=== PATIENT | female | born 1980 | race Caucasian/White ===

== ENCOUNTER 2016-12-11 14:33 | Observation (INO) | payer BC ==
--- NOTE | 2016-12-11 15:31 | DR.GENAD ---
HPI - PCP Primary Care Physician: DR. MORE - Complaint/Symptoms Chief Complaint Doctors Comments: Patient states she feel like her body is quivering and shaking all over for the past 24 hours getting worst the past 2-3 hours. States she has been feeling weak and sleeping most of the day when she usually have insomnia. States her heart rate was 125 and 130 at home at lunch time today. She is a patient of Dr. More and she is taking a lot of medicines for arthritis, headaches, migraines, allergies and nerves. 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 States she has had problems with her nerves since her father's on . States she stopped work two years ago because of panic attacks. States she takes xanax 0.25mg as needed for nerves. Chief Complaint:: PT STATES " MY WHOLE BODY FEELS LIKE ITS SHAKING AND IT WONT QUIT, MY HR IS 120-150....BR Self Treatment fo Chief Complaint: PT STATES " I WOKE UP LIKE THIS". - Nurses notes reviewed Nurses Notes Review: Yes - Source History Provided: Patient - Mode of Arrival Mode of Arrival: Ambulatory - Timing Onset of Chief Complaint: 12/10/16 Came on: Suddenly - Duration Duration: Constant How lon Duration: Hours - Location Location: shaking all over - Severity Severity: Mild - Modifying Factors Worsens:: nothing Improves:: nothing PMH - PMH Past Medical History: Yes Past Medical History: Arthritis, GERD, Hypertension, Kidney Stones Past Surgical History: Yes Surgical History: Cholecystectomy, Ortho Surgery, Other Past Surgical History Comment: BREAST REDUCTION... - Family History History of Family Medical Conditions: Yes Family Medical History: Diabetes Mellitus, Cancer, [place], Coronary Artery Disease, Hypertension - Social History Does patient currently use any type of tobacco product: No Have you used tobacco products in the last 12 months: No Type of Tobacco Use: None Does any household member use tobacco: No Alcohol Use: None Do you use any recreational Drugs:: No Lives With: Family Lives Where: Home - infectious screening In the last 2 months have you had wt loss of >10#?: NO Have you had fever, night sweats or hemotysis?: No Have you traveled outside the country in the last 6 months?: No ROS - Review of Systems Constitutional: No Symptoms Reported. negative: See HPI, Chills, Diaphoresis, Fever, Malaise, Weakness, Irritable, Fatigue, Loss of Appetite, Other Eyes: No Symptoms Reported ENTM: No Symptoms Reported. negative: See HPI, Ear Pain, Ear Discharge, Pulling on Ears, Hearing Loss, Nose Pain, Nose Discharge, Epistaxis, Nose Congestion, Mouth Pain, Mouth Swelling, Loose Teeth, Drooling, Throat Pain, Throat Swelling, Ear Foreign Body Respiratoy: No Symptoms Reported. negative: See HPI, Productive Cough, Non- Productive Cough, Moist Cough, Dry Cough, Hacking Cough, Barking Cough, Brassy Cough, Orthopnea, Short of Breath, Stridor, Wheezing, Hemoptysis, Other Cardiovascular: No Symptoms Reported, Palpitations. negative: See HPI, Chest Pain, Edema, Syncope, Cyanosis, Skin Mottling, Other Gastrointestinal/Abdominal: No Symptoms Reported. negative: See HPI, Abdominal Pain, Constipation, Diarrhea, Nausea, Vomiting, Food Intolerance, Other Genitourinary: No Symptoms Reported. negative: See HPI, Discharge, Dysuria, Frequency, Hematuria, Pain, Bleeding, Other Neurological: No Symptoms Reported, Anxiety, Emotional Problems Musculoskeletal: No Symptoms Reported Integumentary: No Symptoms Reported Hematologic/Lymphatic: No Symptoms Reported Endocrine: No Symptoms Reported Psychiatric: No Symptoms Reported PE - Vital Signs Vitals: Pulse Rate 110 Respiratory Rate 20 Blood Pressure [Right Arm] 92/70 Blood Pressure [Left Arm] 143/82 Blood Pressure 183/106 O2 Sat by Pulse Oximetry 97 - General Limitations: No Limitations General Appearance: Alert, In No Apparent Distress, Obese - Head Head Exam: Normal Inspection, Atraumatic, Normocephalic - Eyes Eye exam: Normal Appearance, PERRL, EOMI. negative: Scleral Icterus, Conjunctival Injection, Nystagmus, Miosis, Mydrasis, Periorbital Swelling, Periorbital Tenderness, Other - ENT ENT Exam: Normal Exam, Normal Oropharynx, Normal External Ear Exam, Mucous Membranes Moist, TM's Normal Bilaterally External Ear Exam: Normal External Inspection TM/Canal Exam: Bilateral Normal Nose Exam: Normal Nose Exam Mouth Exam: Normal Inspection Throat Exam: Normal Inspection - Neck Neck Exam: Normal Inspection, Full ROM, Trachea Midline. negative: Tenderness, Meningismus, Lymphadenopathy, Thyromegaly, Other - Chest Chest Inspection: Normal Inspection, Symmetric Chest Wall Rise - Respiratory Respiratory Exam: Normal Lung Sounds Bilat Respiratory Exam: Bilateral Clear to Auscultation - Cardiovascular Cardiovascular Exam: Regular Rate, Normal Rhythm, Tachycardia, Normal Heart Sounds - Abdominal Exam Abdominal Exam: Normal Inspection, Normal Bowel Sounds, Soft Abdominal Tenderness: negative: RUQ, RLQ, LUQ, LLQ, Epigastrium, Suprapubic, Diffuse, Mild, Moderate, Severe, Other - Extremities Extremities Exam: Normal Inspection, Full ROM, Normal Capillary Refill. negative: Tenderness, Edema, Joint Swelling, Calf Tenderness, Other - Back Back Exam: Normal Inspection, Full ROM - Neurologic Neurological Exam: Alert, Oriented X3, CN II-XII Intact, Normal Gait, Reflexes Normal - Psychiatric Psychiatric Exam: Normal Affect - Skin Skin Exam: Warm, Dry, Intact, Normal Color Course - Reevaluation 1st: Improved - Consultation Called: 16:47 Call Returned: 16:47 (Dr. More to admit) - Education/Counseling Education/Counseling: Patient, Family Educated On: Treatment, Diagnosis, Prognosis, Needs for Follow Up ROR - Labs Reviewed Laboratory Results Reviewed?: Yes (all labs and x-ray results reviewed and discussed with patient and mother) Result Diagrams: 12/11/16 15:35 12/11/16 15:30 Laboratory: WBC 9.2 X10^3/uL (3.6-10.0) 12/11/16 15:35 RBC 5.15 X10^6/uL (3.5-5.4) 12/11/16 15:35 Hgb 14.0 g/dL (12.0-16.0) 12/11/16 15:35 Hct 42.8 % (36.0-47.0) 12/11/16 15:35 MCV 83.2 fL (80.0-100.0) 12/11/16 15:35 MCH 27.2 pg (27.0-34.0) 12/11/16 15:35 MCHC 32.7 g/dL (33.0-35.0) L 12/11/16 15:35 RDW 13.9 % (11.6-16.5) 12/11/16 15:35 Plt Count 298 X10^3/uL (150.0-450.0) 12/11/16 15:35 MPV 8.2 fL (7.4-11.0) 12/11/16 15:35 Neut % 65.8 % (42.0-75.0) 12/11/16 15:35 Lymph % 25.7 % (21.0-51.0) 12/11/16 15:35 [place] % 7.1 % (0.0-13.0) 12/11/16 15:35 Eos % 0.9 % (0.9-2.9) 12/11/16 15:35 Baso % 0.5 % (0.2-1.0) 12/11/16 15:35 Neut # 6.0 x10^3/uL (2.2-4.8) H 12/11/16 15:35 Lymph # 2.4 X10^3/uL (1.3-2.9) 12/11/16 15:35 [place] # 0.7 x10^3/uL (0.3-0.8) 12/11/16 15:35 Eos # 0.1 x10^3/uL (0.0-0.2) 12/11/16 15:35 Baso # 0.0 X10^3/uL (0.0-0.1) 12/11/16 15:35 Absolute Nucleated RBC 0.1 /100WBC 12/11/16 15:35 INR Target Range - 12/11/16 15:30 INR 0.97 (0.8-1.3) 12/11/16 15:30 PTT 32.4 SECONDS (22.9-36.5) 12/11/16 15:30 PTT Comment - 12/11/16 15:30 Sodium 143 mmol/L (136-145) 12/11/16 15:30 Corrected Sodium 143 mmol/L (136-145) 12/11/16 15:30 Potassium 3.7 mmol/L (3.5-5.1) 12/11/16 15:30 Chloride 106 mmol/L (98-107) 12/11/16 15:30 Carbon Dioxide 28.0 mmol/L (21-32) 12/11/16 15:30 BUN 14 mg/dL (7-18) 12/11/16 15:30 Creatinine 0.91 mg/dL (0.55-1.02) 12/11/16 15:30 Est GFR (MDRD) Af Amer > 60 (>60) 12/11/16 15:30 Est GFR (MDRD) Non-Af > 60 (>60) 12/11/16 15:30 Glucose 117 mg/dL (65-99) H 12/11/16 15:30 Calcium 8.9 mg/dL (8.5-10.1) 12/11/16 15:30 Corrected Calcium 9.5 mg/dL (8.5-10.1) 12/11/16 15:30 Magnesium 1.9 mg/dL (1.7-2.9) 12/11/16 15:30 Total Bilirubin 0.50 mg/dL (0.2-1.0) 12/11/16 15:30 AST 17 Units/L (15-37) 12/11/16 15:30 ALT 39 Units/L (12-78) 12/11/16 15:30 Alkaline Phosphatase 108 Units/L (46-116) 12/11/16 15:30 Creatine Kinase 47 Units/L (26-192) 12/11/16 15:30 CK-MB (CK-2) < 1.0 ng/mL (0-4.0) 12/11/16 15:30 CK/CKMB % Calc 2.1 % (<4) 12/11/16 15:30 Troponin I < 0.02 ng/mL (0-1.5) 12/11/16 15:30 Total Protein 7.4 g/dL (6.4-8.2) 12/11/16 15:30 Albumin 3.2 g/dL (3.4-5.0) L 12/11/16 15:30 Globulin 4.2 g/dL (2.5-4.5) 12/11/16 15:30 Albumin/Globulin Ratio 0.8 Ratio (1.1-2.1) L 12/11/16 15:30 Free T4 0.96 ng/dL (0.76-1.46) 12/11/16 15:30 TSH 3rd Generation 1.546 uIU/mL (0.358-3.74) 12/11/16 15:30 - XRAY XRAY Interpreted by: Radiologist (CXR: Heart normal; lungs clear) - EKG Rate: 96 [place]: Normal Rhythm: NSR Block: None Hypertrophy: None ST: Normal, Infarct - Diagnosis Discharge Problem: Tachycardia, Anxiety, Cardiac arrhythmia, Essential hypertension, Hyperglycemia - Discharge Plan Disposition: ADMITTED INPATIENT Condition: Stable - Follow ups/Referrals Follow ups/Referrals: Osmany More [Primary Care Provider] - 3 days - Instructions
[2016-12-11 15:49] LABS: BASOPHILS % (AUTO) 0.5 % (0.2-1.0); EOSINOPHILS # (AUTO) 0.1 x10^3/uL (0.0-0.2); EOSINOPHILS % (AUTO) 0.9 % (0.9-2.9); HEMATOCRIT 42.8 % (36.0-47.0); LYMPHOCYTES # (AUTO) 2.4 X10^3/uL (1.3-2.9); LYMPHOCYTES % (AUTO) 25.7 % (21.0-51.0); MEAN CORPUSCULAR HEMOGLOBIN 27.2 pg (27.0-34.0); MEAN CORPUSCULAR HGB CONC 32.7 g/dL (33.0-35.0); MEAN CORPUSCULAR VOLUME 83.2 fL (80.0-100.0); MEAN PLATELET VOLUME 8.2 fL (7.4-11.0); MONOCYTES # (AUTO) 0.7 x10^3/uL (0.3-0.8); MONOCYTES % (AUTO) 7.1 % (0.0-13.0); NEUTROPHILS % (AUTO) 65.8 % (42.0-75.0); PLATELET COUNT 298 X10^3/uL (150.0-450.0); RED BLOOD COUNT 5.15 X10^6/uL (3.5-5.4); RED CELL DISTRIBUTION WIDTH 13.9 % (11.6-16.5); WHITE BLOOD COUNT 9.2 X10^3/uL (3.6-10.0)
--- NOTE | 2016-12-11 16:08 | RAD ---
HISTORY: Tachycardia Study: AP chest obtained 3:55 p.m. Comparison: Findings: Poor inspiratory effort with the dome of the right diaphragm at the level the right posterior 7th ri b . The trachea is midline . There is no widening or shift of mediastinum. The cardiac silhouette ap pears within normal limits. The costophrenic angles are sharp and both diaphragms are adequately qian ntained. The lungs are adequately aerated. Osseous structures are within normal limits for the patie nt's age There is no evidence of active inflammatory disease. IMPRESSION: 1. Heart normal size lungs clear Reported By:
[2016-12-11 16:09] LABS: BLOOD UREA NITROGEN 14 mg/dL (7-18); CALCIUM 8.9 mg/dL (8.5-10.1); CHLORIDE 106 mmol/L (98-107); COR NA(FOR HYPERGLY) 143 mmol/L (136-145); CREATININE 0.91 mg/dL (0.55-1.02); GLUCOSE 117 mg/dL (65-99); SODIUM 143 mmol/L (136-145); TROPONIN I < 0.02 ng/mL (0-1.5); eGFR BLACK RACES > 60 (>60); eGFR NON BLACK RACES > 60 (>60)
[2016-12-11 16:14] LABS: ALANINE AMINOTRANSFERASE 39 Units/L (12-78); ALBUMIN 3.2 g/dL (3.4-5.0); ALKALINE PHOSPHATASE 108 Units/L (46-116); ASPARTATE AMINO TRANSFERASE 17 Units/L (15-37); CKMB % 2.1 % (<4); COR CA(FOR HYPOALB) 9.5 mg/dL (8.5-10.1); CREATINE KINASE 47 Units/L (26-192); CREATINE KINASE MB < 1.0 ng/mL (0-4.0); FREE T4 (FREE THYROXINE) 0.96 ng/dL (0.76-1.46); MAGNESIUM 1.9 mg/dL (1.7-2.9); TOTAL PROTEIN 7.4 g/dL (6.4-8.2)
[2016-12-11] MEDS ORDERED: TORADOL 30 MG VIAL IVP STA (16:59)
[2016-12-11] MEDS ORDERED: ATIVAN TAB 1 MG PO PRN (17:04)
[2016-12-11] MEDS ORDERED: PROTONIX INJ 40 MG VIAL ONE (17:18)
[2016-12-11] MEDS ORDERED: TORADOL 30 MG VIAL ONE (17:18)
[2016-12-11] MEDS ORDERED: PROTONIX INJ 40 MG VIAL IVP SCH (18:00)
[2016-12-11] MEDS: NS 1/2 + KCL 20 MEQ/L 1,000 ML IV SCH (19:00)
[2016-12-11 21:51] LABS: CKMB % 2.8 % (<4); CREATINE KINASE 36 Units/L (26-192); CREATINE KINASE MB < 1.0 ng/mL (0-4.0); TROPONIN I < 0.02 ng/mL (0-1.5)
[2016-12-12 03:46] LABS: CKMB % 3.1 % (<4); CREATINE KINASE 32 Units/L (26-192); CREATINE KINASE MB < 1.0 ng/mL (0-4.0); TROPONIN I < 0.02 ng/mL (0-1.5)
[2016-12-12 06:01] LABS: CHOL/HDL RATIO 4.2 (0.0-5.0)
[2016-12-12] MEDS: NS 1/2 + KCL 20 MEQ/L 1,000 ML IV SCH (06:16)
[2016-12-12 08:23] VITALS: BP 97/53
[2016-12-12] MEDS ORDERED: LOVENOX INJ 40 MG SYR SC SCH (09:00)
[2016-12-12] MEDS ORDERED: FIORICET TAB PO PRN (11:52)
[2016-12-12 19:14] VITALS: BMI 45.9
== END 2016-12-12 12:15 | disposition home or self-care (01) | DRG 313 ==
LOC: ER 14:54 → MED/SURG 17:01
PROVIDERS: ADMIT Internal Medicine; ATTEND Internal Medicine
DX: R07.89 Other chest pain (principal); R06.02 Shortness of breath; I10 Essential (primary) hypertension; R00.0 Tachycardia, unspecified; M13.89 Other specified arthritis, multiple sites; R51 Headache; K21.9 Gastro-esophageal reflux disease without esophagitis; F41.0 Panic disorder [episodic paroxysmal anxiety]; K31.84 Gastroparesis; R79.89 Other specified abnormal findings of blood chemistry
CPT/HCPCS: 36415; 71010; 80053; 80061; 82550; 82553; 83735; 84439; 84443; 84484; 85025; 85610; 85730; 93005; 94760; 96365; 96374; 96375; 99284; A4216; A4222; C9113; J7030; G0378; J1885

== ENCOUNTER 2017-01-03 05:23 | Emergency (ER) | payer BC ==
[2017-01-03] MEDS ORDERED: DEMEROL INJ IVP ONE (05:40)
[2017-01-03] MEDS ORDERED: ZOFRAN INJ 4 MG VIAL IVP ONE (05:40)
[2017-01-03] MEDS ORDERED: ADACEL TDaP IM ONE ×2 (05:42→05:47)
--- NOTE | 2017-01-03 05:44 | DR.LACERAT ---
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 PMH - PMH Past Medical History: Arthritis, GERD, Hypertension, Kidney Stones Past Medical History Comment: autoimmune disease Past Surgical History: Yes Surgical History: Cholecystectomy, Ortho Surgery, Other - Family History Family Medical History: Hypertension - Social History Do you use any recreational Drugs:: No ROS - Review of Systems Constitutional: No Symptoms Reported Respiratoy: No Symptoms Reported Cardiovascular: No Symptoms Reported Gastrointestinal/Abdominal: No Symptoms Reported Integumentary: See HPI PE - Vital Signs Vitals: Temperature 98.2 F Pulse Rate 97 Respiratory Rate 18 Blood Pressure [] 97/53 Blood Pressure [] 143/82 Blood Pressure 140/92 O2 Sat by Pulse Oximetry 96 - General Limitations: No Limitations General Appearance: Alert - Neck Neck Exam: Normal Inspection - Chest Chest Inspection: Normal Inspection - Respiratory Respiratory Exam: Normal Lung Sounds Bilat Respiratory Exam: Bilateral Clear to Auscultation - Cardiovascular Cardiovascular Exam: Regular Rate - Neurologic Neurological Exam: Alert - Skin Skin Exam: Other (jagged, vshaped 3-4 cm lac to lateral left forearm; bleeding controlled) Procedures - Laceration/Wound Repair Left Lateral Forearm Wound Length (cm): 4 Wound's Depth, Shape: Linear (v shaped), Irregular Wound Explored: no foreign body removed Betadine Prep?: Yes Anesthesia: 1% Lidocaine w/ Epi Wound Debrided: minimal Wound Repaired With: sutures Suture Size/Type: 5:0, Prolene Number of Sutures: 3 Layer Closure?: No - Diagnosis Discharge Problem: Dog bite of forearm Qualifiers: Encounter type: initial encounter Laterality: left Qualified Code(s): S51.852A - Open bite of left forearm, initial encounter - Discharge Plan Disposition: 01 HOME, SELF-CARE Condition: Stable Prescriptions: Clindamycin HCl 300 mg PO Q8H #21 cap Doxycycline (Monohydrate) [Doxycycline Monohydrate] 100 mg PO BID #14 cap Hydrocodone-Acet 5 mg/325 mg [NORCO 5 MG/325 MG *] 1 tab PO Q6H PRN #12 tab PRN Reason: Pain - Follow ups/Referrals Follow ups/Referrals: Osmany Zamora [Primary Care Provider] - 3 days - Instructions Instructions: Animal Bite, Laceration Care, Adult, [id number] Additional Instructions: remove stitches in 3 days
[2017-01-03] MEDS ORDERED: DEMEROL INJ IM ONE (05:46)
[2017-01-03] MEDS ORDERED: ZOFRAN INJ 4 MG VIAL IM ONE (05:46)
[2017-01-03] MEDS ORDERED: ZOFRAN INJ 4 MG VIAL ONE (05:47)
[2017-01-03] MEDS ORDERED: DEMEROL INJ ONE (05:47)
[2017-01-03 05:48] VITALS: BP 140/92; BMI 45.7
[2017-01-03] MEDS ORDERED: XYLOCAINE 1% and EPINEPHRINE 1:100,000 IM ONE (05:57)
[2017-01-03] MEDS ORDERED: BETADINE SOLN TOP ONE (05:57)
[2017-01-03] MEDS ORDERED: XYLOCAINE 1% and EPINEPHRINE 1:100,000 ONE (05:59)
== END 2017-01-03 06:33 | disposition home or self-care (01) ==
LOC: ER 05:23
PROC: 0XQ90ZZ Repair Left Upper Arm, Open Approach (ICD-10-PCS; principal; 2017-01-03)
DX: S51.852A Open bite of left forearm, initial encounter (principal); W54.0XXA Bitten by dog, initial encounter; Y92.9 Unspecified place or not applicable
CPT/HCPCS: 12002; 90471; 96372; 99282; J2001; J2175; J2405

== ENCOUNTER → 2017-02-10 | Outpatient (CLI) | payer BC ==
--- NOTE | 2017-02-10 16:22 | MG ---
Examination: Bilateral diagnostic mammogram and right breast ultrasound. Clinical history: Personal history of bilateral breast reduction. Right breast lump. Technique: Multiple digital images of both breasts were obtained. Targeted right breast ultrasound w as also obtained evaluating the area of palpable concern in the inferior medial aspect of the right breast. Comparison: None available. Baseline mammogram. Findings: The breasts are composed of scattered fibroglandular densities. Scattered oil cysts are present in t he breasts bilaterally, probably related to the prior bilateral breast reduction. A 1.6 cm lobular oil cyst is seen in the inferior medial aspect of the right breast, associated with a scar marker from the prior breast reduction surgery. The oil cyst is seen in the vicinity of the palpable area of concern. No additional mammographic abnormality is evident in the area of palpable concern. No suspicious mass, area of architectural distortion or suspicious cluster of microcalcifications is noted in the left breast. Targeted right breast ultrasound evaluating the area of palpable concern in the inferior medial aspe ct of the right breast reveals a circumscribed lobular hypoechoic area with cystic and solid compone nts measuring 1.1 x 0.7 cm in size seen at the surgical site from the prior breast reduction, at the 4 o'clock position, and correlating with the area of palpable concern and findings on the mammogram . Findings probably represent a complicated oil cyst. A followup right diagnostic mammogram and righ t breast ultrasound is recommended in 6 months to ensure stability of the findings. Impression: 1. Probably benign postsurgical changes at the 4 o'clock position in the right breast, as described above. BI-RADS category 3/III (THREE) - PROBABLY BENIGN FINDING; SHORT INTERVAL FOLLOW-UP SUGGESTED. Recommend a followup right diagnostic mammogram and right breast ultrasound in [address] ability of the findings in the right breast. Diagnostic CAD was utilized and reviewed. * 0 (ZERO) - ASSESSMENT INCOMPLETE; ADDITIONAL IMAGING IS NEEDED. * 0C - ASSESSMENT INCOMPLETE, NEEDS ADDITIONAL IMAGING EVALUATION AND/OR PRIOR MAMMOGRAMS FOR COMPAR ANGEL. * 1/1 (ONE) - NEGATIVE. * 2/II (TWO) - BENIGN FINDINGS. * 3/III (THREE) - PROBABLY BENIGN FINDING; SHORT INTERVAL FOLLOW-UP SUGGESTED. * 4/IV (FOUR) - SUSPICIOUS ABNORMALITY; BIOPSY SHOULD BE CONSIDERED. * 5/V - HIGHLY SUSPICIOUS OF MALIGNANCY; BIOPSY SHOULD BE PERFORMED. * 6/IV - KNOWN BIOPSY PROVEN MALIGNANCY-APPROPRIATE ACTION SHOULD BE TAKEN. A NEGATIVE X-RAY REPORT SHOULD NOT DELAY BIOPSY IF A DOMINANT OR CLINICALLY SUSPICIOUS MASS IS PRESENT; 4 TO 8 PERCENT OF CANCERS ARE NOT IDENTIFIED BY X-RAY. A NEGATIVE REPORT MAY REINFORCE THE CLINICAL IMPRESSION. ADENOSIS AND DENSE BREASTS MAY OBSCURE AN UNDERLYING NEOPLASM. Reported By:
== END ==
LOC: RAD 14:11
PROVIDERS: ATTEND Specialist
DX: N64.4 Mastodynia (principal); N63 Unspecified lump in breast
CPT/HCPCS: 76642; 77066

== ENCOUNTER 2017-04-13 15:15 | Inpatient (IN) | payer BC ==
--- NOTE | 2017-04-13 15:51 | DR.GENAD ---
HPI - PCP Primary Care Physician: DERIK - HPI Comment HPI Comment: HISTORY BELOW. - Complaint/Symptoms Chief Complaint Doctors Comments: NEAR SYNCOPAL EPISODE AT HOME. DIARRHEA TIMES 5 DAYS. NOW WEAK AND DIZZY. SEE PECKS AND FEEL SHE MAY PASS OUT. SEVERAL WATERY DIARRHEA STOOL TODAY. Chief Complaint:: WHILE SITTING ON TOILET PRIOR TO ARRIVAL. PT HAS EPISODE OF THINGS FAIDING AWAY AND FELT LIKE WAS GONNA PASS AWAY Self Treatment fo Chief Complaint: TAKING HOME MEDS - Nurses notes reviewed Nurses Notes Review: Yes - Source History Provided: Patient - Mode of Arrival Mode of Arrival: Ambulatory - Timing Onset of Chief Complaint: 04/13/17 Came on: Suddenly - Duration Duration: Constant Duration: Days - Severity Severity: Moderate PMH - PMH Past Medical History: Yes Past Medical History: Arthritis, GERD, Hypertension, Kidney Stones Past Surgical History: Yes Surgical History: Cholecystectomy, Ortho Surgery, Other Past Surgical History Comment: BREAST REDUCTION, BICEP - Family History History of Family Medical Conditions: Yes Family Medical History: Diabetes Mellitus, Cancer, [place], Coronary Artery Disease, Hypertension Family Medical History Comment: ANEURYSM - Social History Does patient currently use any type of tobacco product: No Have you used tobacco products in the last 12 months: No Type of Tobacco Use: None Alcohol Use: None Do you use any recreational Drugs:: No Lives With: Family Lives Where: Home - infectious screening In the last 2 months have you had wt loss of >10#?: NO Have you had fever, night sweats or hemotysis?: No Have you traveled outside the country in the last 6 months?: No Isolation: Standard ROS - Review of Systems Constitutional: Weakness, Fatigue, Loss of Appetite. negative: Chills, Diaphoresis, Fever Eyes: Blurred Vision, Photophobia. negative: Eye Pain, Discharge ENTM: negative: Ear Pain, Nose Discharge, Nose Congestion, Throat Pain Respiratoy: Short of Breath. negative: Productive Cough, Non-Productive Cough, Wheezing, Hemoptysis Cardiovascular: Chest Pain. negative: Edema, Palpitations Gastrointestinal/Abdominal: Abdominal Pain, Diarrhea. negative: Constipation, Nausea, Vomiting Genitourinary: Other (DECREASE URINE OUTPUT.). negative: Dysuria, Frequency, Hematuria Neurological: Headache, Weakness, Dizziness Musculoskeletal: Muscle Pain Integumentary: Dryness Hematologic/Lymphatic: No Symptoms Reported Endocrine: No Symptoms Reported All Other Systems: Reviewed and Negative PE - Vital Signs Vitals: Temperature 97.7 F Pulse Rate [Left Radial] 71 Pulse Rate 92 Respiratory Rate 20 Blood Pressure [Right Arm] 81/46 Blood Pressure [Left Arm] 88/51 Blood Pressure 58/46 O2 Sat by Pulse Oximetry 99 - General Limitations: No Limitations General Appearance: Alert - Head Head Exam: Normal Inspection - Eyes Eye exam: Normal Appearance - ENT ENT Exam: Normal External Ear Exam External Ear Exam: Normal External Inspection TM/Canal Exam: Bilateral Normal Nose Exam: Normal Nose Exam Mouth Exam: Normal Inspection Throat Exam: Normal Inspection - Neck Neck Exam: Trachea Midline. negative: Tenderness, Meningismus, Lymphadenopathy - Chest Chest Inspection: Symmetric Chest Wall Rise - Respiratory Respiratory Exam: Normal Lung Sounds Bilat Respiratory Exam: Bilateral Clear to Auscultation - Cardiovascular Cardiovascular Exam: Regular Rate, Normal Rhythm, Normal Heart Sounds - Abdominal Exam Abdominal Exam: Normal Bowel Sounds, Soft, Tenderness Abdominal Tenderness: Diffuse, Moderate - Back Back Exam: Normal Inspection - Neurologic Neurological Exam: Alert, Oriented X3, CN II-XII Intact, Reflexes Normal. negative: Motor Sensory Deficit - Psychiatric Psychiatric Exam: Anxious - Skin Skin Exam: Dry MDM - Additional Information Additional Information Obtained From: Family - Differential Diagnosis Differential Diagnosis: HYPOTENSION, ABDOMINAL PAIN, DIARRHEA, BOWEL OBSTRUCTION Course - Treatment Treatment: IV BOLUS IN ED. REMAIN HYPOTENSIVE.DOPAMIN DRIP STARTED AND PATIENT ADMITTED TO ICU. - Consultation Consultation Comments: DISCUSS PATIENT WITH DR. MORE. HE WILL ADMIT PATIENT. - Education/Counseling Education/Counseling: Patient, Family, Education Educated On: Treatment, Diagnosis ROR - Labs Reviewed Laboratory Results Reviewed?: Yes Result Diagrams: 04/14/17 04:30 04/14/17 04:30 Laboratory: WBC 17.6 X10^3/uL (3.6-10.0) H 04/14/17 04:30 RBC 4.76 X10^6/uL (3.5-5.4) 04/14/17 04:30 Hgb 12.4 g/dL (12.0-16.0) 04/14/17 04:30 Hct 38.9 % (36.0-47.0) 04/14/17 04:30 MCV 81.7 fL (80.0-100.0) 04/14/17 04:30 MCH 26.1 pg (27.0-34.0) L 04/14/17 04:30 MCHC 32.0 g/dL (33.0-35.0) L 04/14/17 04:30 RDW 15.1 % (11.6-16.5) 04/14/17 04:30 Plt Count 303 X10^3/uL (150.0-450.0) 04/14/17 04:30 Plt Count Comment Adequate (ADEQUATE) 04/13/17 16:08 MPV 9.2 fL (7.4-11.0) 04/14/17 04:30 Neut % 73.2 % (42.0-75.0) 04/14/17 04:30 Lymph % 16.1 % (21.0-51.0) L 04/14/17 04:30 [place] % 9.1 % (0.0-13.0) 04/14/17 04:30 Eos % 1.4 % (0.9-2.9) 04/14/17 04:30 Baso % 0.2 % (0.2-1.0) 04/14/17 04:30 Neut # 12.9 x10^3/uL (2.2-4.8) H 04/14/17 04:30 Lymph # 2.8 X10^3/uL (1.3-2.9) 04/14/17 04:30 [place] # 1.6 x10^3/uL (0.3-0.8) H 04/14/17 04:30 Eos # 0.2 x10^3/uL (0.0-0.2) 04/14/17 04:30 Baso # 0.0 X10^3/uL (0.0-0.1) 04/14/17 04:30 Absolute Nucleated RBC 0.0 /100WBC 04/14/17 04:30 Plt Morphology Comment Normal (NORMAL) 04/13/17 16:08 RBC Morphology Abnormal (NORMAL) A 04/13/17 16:08 Hypochromasia Slight A 04/13/17 16:08 Sodium 143 mmol/L (136-145) 04/14/17 04:30 Corrected Sodium 144 mmol/L (136-145) 04/14/17 04:30 Potassium 3.4 mmol/L (3.5-5.1) L 04/14/17 04:30 Chloride 110 mmol/L (98-107) H 04/14/17 04:30 Carbon Dioxide 18.3 mmol/L (21-32) L 04/14/17 04:30 BUN 31 mg/dL (7-18) H 04/14/17 04:30 Creatinine 2.55 mg/dL (0.55-1.02) H 04/14/17 04:30 Est GFR (MDRD) Af Amer 27 (>60) L 04/14/17 04:30 Est GFR (MDRD) Non-Af 22 (>60) L 04/14/17 04:30 Glucose 137 mg/dL (65-99) H 04/14/17 04:30 Calcium 7.1 mg/dL (8.5-10.1) L 04/14/17 04:30 Corrected Calcium 7.9 mg/dL (8.5-10.1) L 04/14/17 04:30 Magnesium 1.7 mg/dL (1.7-2.9) 04/14/17 04:30 Total Bilirubin 0.40 mg/dL (0.2-1.0) 04/14/17 04:30 AST 42 Units/L (15-37) H 04/14/17 04:30 ALT 92 Units/L (12-78) H 04/14/17 04:30 Alkaline Phosphatase 134 Units/L (46-116) H 04/14/17 04:30 Total Protein 6.9 g/dL (6.4-8.2) 04/14/17 04:30 Albumin 3.0 g/dL (3.4-5.0) L 04/14/17 04:30 Globulin 3.9 g/dL (2.5-4.5) 04/14/17 04:30 Albumin/Globulin Ratio 0.8 Ratio (1.1-2.1) L 04/14/17 04:30 Specimen Type Catherized urine 04/13/17 20:15 Urine Color Yellow (YELLOW) 04/13/17 20:15 Urine Appearance Cloudy (CLEAR) 04/13/17 20:15 Urine pH 5.0 (5.0 - 8.0) 04/13/17 20:15 Ur Specific [place] 1.025 (1.000-1.030) 04/13/17 20:15 Urine Protein 3+ (NEGATIVE) 04/13/17 20:15 Urine Glucose (UA) Negative (NEGATIVE) 04/13/17 20:15 Urine Ketones 1+ (NEGATIVE) 04/13/17 20:15 Urine Occult Blood 3+ (NEGATIVE) 04/13/17 20:15 Urine Nitrite Negative (NEGATIVE) 04/13/17 20:15 Urine Bilirubin 1+ (NEGATIVE) 04/13/17 20:15 Urine Urobilinogen Normal (NORMAL) 04/13/17 20:15 Ur Leukocyte Esterase 1+ (NEGATIVE) 04/13/17 20:15 Urine RBC 2-6 /HPF (NEGATIVE) 04/13/17 20:15 Urine WBC 10-15 /HPF (NEGATIVE) 04/13/17 20:15 Ur Squamous Epith Cells Few /HPF (NEGATIVE) 04/13/17 20:15 Amorphous Sediment 1+ /HPF (NEGATIVE) 04/13/17 20:15 Urine Bacteria 1+ /HPF (NEGATIVE) 04/13/17 20:15 Urine Mucus Moderate /HPF (NEGATIVE) 04/13/17 20:15 Ur Culture Indicated? Yes/culture set up 04/13/17 20:15 - XRAY XRAY Interpreted by: Radiologist XRAY Findings: REPORT DISCUSS WITH PATIENT AND FAMILY. - Diagnosis Discharge Problem: Dehydration Hypotension Qualifiers: Hypotension type: other hypotension type Qualified Code(s): I95.89 - Other hypotension Diarrhea Qualifiers: Diarrhea type: unspecified type Qualified Code(s): R19.7 - Diarrhea, unspecified Syncopal episodes Qualifiers: Syncope type: unspecified Qualified Code(s): R55 - Syncope and collapse - Discharge Plan Disposition: ADMITTED INPATIENT Condition: Stable - Follow ups/Referrals - Instructions
[2017-04-13] MEDS ORDERED: NS 1000 ML 1,000 ML ONE ×4 (16:01→20:18)
[2017-04-13] MEDS ORDERED: NS 1000 ML 1,000 ML IV ONE ×3 (16:01→19:05)
[2017-04-13 16:16] LABS: BASOPHILS # (AUTO) 0.1 X10^3/uL (0.0-0.1); BASOPHILS % (AUTO) 0.6 % (0.2-1.0); EOSINOPHILS # (AUTO) 0.1 x10^3/uL (0.0-0.2); HEMATOCRIT 44.1 % (36.0-47.0); HEMOGLOBIN 14.2 g/dL (12.0-16.0); LYMPHOCYTES % (AUTO) 21.3 % (21.0-51.0); MEAN CORPUSCULAR HEMOGLOBIN 25.9 pg (27.0-34.0); MEAN CORPUSCULAR HGB CONC 32.2 g/dL (33.0-35.0); MEAN CORPUSCULAR VOLUME 80.5 fL (80.0-100.0); MEAN PLATELET VOLUME 8.6 fL (7.4-11.0); MONOCYTES # (AUTO) 0.9 x10^3/uL (0.3-0.8); MONOCYTES % (AUTO) 6.5 % (0.0-13.0); NEUTROPHILS # (AUTO) 9.9 x10^3/uL (2.2-4.8); NEUTROPHILS % (AUTO) 70.6 % (42.0-75.0); PLATELET COUNT 415 X10^3/uL (150.0-450.0); RED BLOOD COUNT 5.47 X10^6/uL (3.5-5.4); RED CELL DISTRIBUTION WIDTH 15.2 % (11.6-16.5)
[2017-04-13 16:28] LABS: ALANINE AMINOTRANSFERASE 118 Units/L (12-78); ALBUMIN 3.7 g/dL (3.4-5.0); ALKALINE PHOSPHATASE 150 Units/L (46-116); ASPARTATE AMINO TRANSFERASE 57 Units/L (15-37); BLOOD UREA NITROGEN 39 mg/dL (7-18); CALCIUM 8.6 mg/dL (8.5-10.1); CARBON DIOXIDE 26.8 mmol/L (21-32); CHLORIDE 103 mmol/L (98-107); CREATININE 4.25 mg/dL (0.55-1.02); GLUCOSE 87 mg/dL (65-99); SODIUM 142 mmol/L (136-145); TOTAL PROTEIN 8.1 g/dL (6.4-8.2); eGFR BLACK RACES 15 (>60); eGFR NON BLACK RACES 12 (>60)
[2017-04-13 16:43] LABS: HYPOCHROMASIA SLIGHT; PLATELET MORPHOLOGY COMMENT NORMAL (NORMAL)
--- NOTE | 2017-04-13 17:12 | CT ---
HISTORY: Dizziness, passing out. Study: CT brain without contrast Comparison: None. Technique: Multiple axial images of the brain were obtained from the skull base to the vertex without administr ation of IV contrast. Dose reduction techniques including Automated Exposure Control (AEC) and adju stment of mA and kV were utilized. Findings: No acute intraparenchymal hemorrhage or mass can be identified. No extra-axial fluid collections ar e seen. No alteration in the attenuation of the brain parenchyma can be identified to suggest acute or subacute ischemic change. The ventricular system is symmetric and nondilated. The extracranial structures are grossly unremarkable. IMPRESSION: 1. No acute intracranial process can be identified. Reported By:
--- NOTE | 2017-04-13 17:20 | RAD ---
HISTORY: Diarrhea, abdominal pain Study: Acute abdominal series Comparison: Chest radiograph December 11, 2016, CT abdomen pelvis without contrast October 28, 2016 Findings: The heart size is normal for AP technique. The lungs are hypoexpanded but clear. No focal infiltrate or effusion is identified. There is a nonspecific bowel gas pattern with relative paucity of bowel gas. No convincing pneumatos is or free intraperitoneal air is identified. No abnormally dilated, gas filled loops of small bowel are seen. No pathologic calcifications are identified. The bony structures are grossly intact. IMPRESSION: 1. No acute cardiopulmonary disease. 2. Nonspecific bowel gas pattern without convincing evidence of bowel obstruction. Reported By:
--- NOTE | 2017-04-13 18:46 | CT ---
CT abdomen and pelvis without contrast Indication: Abdominal pain Comparison: 10/28/2016 Technique: Multiple axial images of the abdomen and pelvis were obtained from the lung bases to the pubic symph ysis without the administration of IV contrast. Coronal and sagittal images were also provided. Radiation dose reduction techniques were performed utilizing adjustment for MA/kVP based on patient body size. Findings: The visualized portions of the lung bases are unremarkable. The bony structures are grossly intact. Given the limitations of lack of IV contrast administration the liver, spleen, pancreas, and adrenal glands are unremarkable in their CT appearance. Previous cholecystectomy is noted. Both kidneys demonstrate punctate nonobstructing stones. No ureteral stone or hydroureteronephrosis. Mild fluid distension of the small bowel is nonspecific however can be seen the setting of a mild en teritis. No evidence of obstruction. The colon and rectum are unremarkable. The urinary bladder is grossly unremarkable. No pelvic or adnexal mass. The appendix is normal. No mesenteric lymphadenopathy or stranding can be observed. No free fluid or free air is seen withi n the abdomen. IMPRESSION: 1. Mild fluid distension of the small bowel is nonspecific; however can be seen in the setting of a mild enteritis. No CT evidence of obstruction. 2. Bilateral punctate nonobstructing nephrolithiasis. .
[2017-04-13] MEDS: NS 1000 ML 1,000 ML IV SCH ×2 (20:20→22:01)
[2017-04-13 20:34] LABS: BILIRUBIN,URINE 1+ (NEGATIVE); BLOOD/HEMOGLOBIN,URINE 3+ (NEGATIVE); GLUCOSE, URINE NEGATIVE (NEGATIVE); KETONES,URINE 1+ (NEGATIVE); LEUKOCYTE ESTERASE ,URINE 1+ (NEGATIVE); NITRITES,URINE NEGATIVE (NEGATIVE); PROTEIN,URINE 3+ (NEGATIVE); UROBILINOGEN,URINE NORMAL (NORMAL)
[2017-04-13 20:44] LABS: AMORPHOUS SEDIMENT,UR 1+ /HPF (NEGATIVE); APPEARANCE,URINE CLOUDY (CLEAR); BACTERIA,URINE 1+ /HPF (NEGATIVE); COLOR,URINE YELLOW (YELLOW); MUCUS,URINE MODERATE /HPF (NEGATIVE); SQUAMOUS EPITHELIAL CELL,UR FEW /HPF (NEGATIVE)
[2017-04-13] MEDS: DOPAMINE IV PREMIX 400 MG 400 MG/250 ML BAG IV PRN (20:51)
[2017-04-13] MEDS: CIPRO IV 400 MG PREMIX* 400 MG/200 ML IV.SOLN. IV SCH (22:00)
[2017-04-13 23:03] VITALS: BMI 46.2
[2017-04-14] MEDS ORDERED: NS 1000 ML 1,000 ML IV ONE ×2 (00:08→01:09)
[2017-04-14] MEDS: DOPAMINE IV PREMIX 400 MG 400 MG/250 ML BAG IV PRN ×3 (01:29→13:34)
[2017-04-14] MEDS: NS 1000 ML 1,000 ML IV SCH ×6 (03:15→21:09)
[2017-04-14 06:23] LABS: BASOPHILS % (AUTO) 0.2 % (0.2-1.0); EOSINOPHILS # (AUTO) 0.2 x10^3/uL (0.0-0.2); EOSINOPHILS % (AUTO) 1.4 % (0.9-2.9); HEMATOCRIT 38.9 % (36.0-47.0); HEMOGLOBIN 12.4 g/dL (12.0-16.0); LYMPHOCYTES # (AUTO) 2.8 X10^3/uL (1.3-2.9); LYMPHOCYTES % (AUTO) 16.1 % (21.0-51.0); MEAN CORPUSCULAR HEMOGLOBIN 26.1 pg (27.0-34.0); MEAN CORPUSCULAR VOLUME 81.7 fL (80.0-100.0); MEAN PLATELET VOLUME 9.2 fL (7.4-11.0); MONOCYTES # (AUTO) 1.6 x10^3/uL (0.3-0.8); MONOCYTES % (AUTO) 9.1 % (0.0-13.0); NEUTROPHILS # (AUTO) 12.9 x10^3/uL (2.2-4.8); NEUTROPHILS % (AUTO) 73.2 % (42.0-75.0); PLATELET COUNT 303 X10^3/uL (150.0-450.0); RED BLOOD COUNT 4.76 X10^6/uL (3.5-5.4); RED CELL DISTRIBUTION WIDTH 15.1 % (11.6-16.5); WHITE BLOOD COUNT 17.6 X10^3/uL (3.6-10.0)
[2017-04-14 06:38] LABS: CALCIUM 7.1 mg/dL (8.5-10.1); CARBON DIOXIDE 18.3 mmol/L (21-32); COR CA(FOR HYPOALB) 7.9 mg/dL (8.5-10.1); CREATININE 2.55 mg/dL (0.55-1.02); MAGNESIUM 1.7 mg/dL (1.7-2.9); TOTAL PROTEIN 6.9 g/dL (6.4-8.2)
[2017-04-14] MEDS: CIPRO IV 400 MG PREMIX* 400 MG/200 ML IV.SOLN. IV SCH ×2 (09:12→21:08)
[2017-04-14] MEDS: REGLAN INJ 10 MG VIAL IVP SCH ×3 (11:45→21:09)
--- NOTE | 2017-04-14 13:29 | DR.H&P ---
H&P - History & Physical for Day of: H&P Date: 04/13/17 - Chief Complaint Chief Complaint: HYPOTENSION, DEHYDRATION, UREMIA, DIARRHEA - Allergies Allergies/Adverse Reactions: Allergies Allergy/AdvReac Type Severity Reaction Status Date / Time codeine AdvReac Verified 04/13/17 15:23 Penicillins AdvReac Verified 04/13/17 15:23 Sulfa (Sulfonamide AdvReac Verified 04/13/17 15:23 Antibiotics) [SULFA] - History of Present Illness History of Present Illness: IS A 36 YEAR OLD PATIENT OF OURS WHO PRESENTED TO THE EMERGENCY ROOM WITH COMPLAINTS OF WEAKNESS, DIZZINESS, NEAR SYNCOPE, AND DIARRHEA. PATIENT REPORTS DIARRHEA X 5 DAYS PRIOR TO COMING TO THE ER. ON ARRIVAL, VITALS WERE 97.7, 92, 97%, 20, 66/59. PATIENT REPORTED THAT HER FATHER RECENTLY FROM A CEREBRAL ANEURYSM. SHE COMPLAINS OF BACK AND NECK PAIN. CBC WNL EXCEPT WBC 14.0, RBC 5.47. CMP WNL EXCEPT BUN 39, CREATININE 4.25, GFR 12, AST 57, ALT 118, ALKALINE PHOSPHATASE 150. URINALYSIS REPORTS WBC 10-15, BACTERIA 1+, LEUKOCYTES 1+, PROTEIN 3+. BRAIN CT NEGATIVE FOR ACUTE INTRACRANIAL ABNORMALITY. ABD/PELVIS CT WITHOUT CONTRAST REPORTS MILD FLUID DISTENTION OF THE SMALL BOWEL, MILD ENTERITIS, BILATERAL PUNCTATE NONOBSTRUCTING NEPHROLITHIASIS. SHE WAS GIVEN NS BOLUS X 2 IN ER AND STARTED ON A DOPAMINE DRIP. ONLY SLIGHT INCREASE IN BLOOD PRESSURE TO 88/51. WE ADMITTED PATIENT FOR FURTHER TREATMENT AND EVALUATION. WE ORDERED FOR A MURRAY CATHETER AND SUPPLEMENTAL OXYGEN. WE STARTED PATIENT ON NS @250ML/HR, CIPRO 400MG IV Q12H , DOPAMINE DRIP. WE PLANNED TO RECHECK LABS AND CONTINUE FOLLOWING PATIENT. - Past Medical History Past Medical History: Arthritis, GERD, Hypertension, Kidney Stones, PUD - Past Surgical History Surgical History: Cholecystectomy, Ortho Surgery, Other Additional Surgical History: BREAST REDUCTION, LEFT SALIVARY GLAND REMOVED - Family History Family Medical History: Diabetes Mellitus, Cancer, PR, Coronary Artery Disease, Hypertension - Social History Does patient currently use any type of tobacco product: No Have you used tobacco products in the last 12 months: No Type of Tobacco Use: None Alcohol Use: None Drug Use: None - Medications Home Medications: Hydrochlorothiazide [Hydrochlorothiazide 25 mg Tab] 25 mg PO QAM 04/13/17 [ History Confirmed 04/13/17] - Review of Systems Constitutional: See HPI, Weakness. denies: No Symptoms Reported, Fever, Chills , Sweats, Malaise, Other Eyes: No Symptoms Reported. denies: See HPI, Pain, Vision Change, Conjunctivae Inflammation, Eyelid Inflammation, Redness, Other ENT: No Symptoms Reported. denies: See HPI, Ear Pain, Ear Discharge, Nose Pain , Nose Discharge, Nose Congestion, Mouth Pain, Mouth Swelling, Throat Pain, Throat Swelling, Other Respiratory: Shortness of Breath. denies: No Symptoms Reported, See HPI, Cough , Dry, Hemoptysis, SOB with Excertion, Pleuritic Pain, Sputum, Wheezing, Other Cardiovascular: Chest Pain, Light Headedness. denies: No Symptoms Reported, See HPI, Palpitations, Orthopnea, Paroxysmal Noc. Dyspnea, Edema, Other Gastrointestinal: See HPI, Abdominal Pain, Diarrhea. denies: No Symptoms Reported, Nausea, Vomiting, Constipation, Melena, Hematochezia, Other Genitourinary: Dysuria. denies: No Symptoms Reported, See HPI, Frequency, Incontinence, Hematuria, Retention, Other Musculoskeletal: See HPI. denies: No Symptoms Reported, Shoulder Pain, Arm Pain , Back Pain, Hand Pain, Leg Pain, Foot Pain, Neck Pain, Other Skin: See HPI. denies: No Symptoms Reported, Rash, Lesions, Jaundice, Bruising , Wound, Ecchymosis, Other Neurological: See HPI, Weakness. denies: No Symptoms Reported, Numbness, Incoordination, Change in Speech, Confusion, Seizures, Other - Physical Exam Vital Signs: Temperature 99.8 F Pulse Rate [Apical] 113 Pulse Rate [Left Radial] 93 Respiratory Rate 19 Blood Pressure [Left Arm] 107/63 O2 Sat by Pulse Oximetry 100 Oriented: Normal. negative: Time, Person, Place, Not Oriented, Unable to test, Other Eyes: Normal. negative: Blurred Vision, Diplopia, Discharge, Pain, Redness, Photophobia, Other Ear: Normal. negative: Right, Left, Swelling, Ecchymosis, Hemotypanum, Abrasion , Laceration Nose: Normal. negative: Injected, Discharge, Blood, Other Throat: Normal. negative: Tonsillar Hypertrophy, Red, Exudate, Dry, Other Respiratory: Clear Throughout. negative: Diminished Throughout, Rhonchi Throughout, Rales Throughout, Wheezes Throughout, RUL Clear, RML Clear, RLL Clear, KIAN Clear, LML Clear, LLL Clear, RUL Diminished, RML Diminished, RLL Diminished, KIAN Diminished, LML Diminished, LLL Diminished, RUL Absent, RML Absent, RLL Absent, KIAN Absent, LML Absent, LLL Absent, RUL Rhonchi, RML Rhonchi , RLL Rhonchi, KIAN Rhonchi, LML Rhonchi, LLL Rhonchi, RUL Insp. Wheeze, RML Insp. Wheeze, RLL Insp. Wheeze, KIAN Insp.Wheeze, LML Insp.Wheeze, LLL Insp.Wheeze, RUL Exp. Wheeze, RML Exp. Wheeze, RLL Exp. Wheeze, KIAN Exp. Wheeze , LML Exp. Wheeze, LLL Exp. Wheeze, RUL Rales, RML Rales, RLL Rales, KIAN Rales, LML Rales, LLL Rales, RUL Rub, RML Rub, RLL Rub, KIAN Rub, LML Rub, LLL Rub, RUL Squeak, RML Squeak, RLL Squeak, KIAN Squeak, LML Squeak, LLL Squeak Cardiovascular: Normal : Dysuria. negative: Normal, Hematuria, Frequency, Discharge, Testicular Pain , Bleeding, , Other Auscultation: Bowel Sounds: Increased. negative: Normal, Bruit, Absent, Decreased, High Pitched, Other Palpation: Normal. negative: Spleen Enlarged, Liver Enlarged, Mass Pulsatile, Other Tenderness: Diffuse, Suprapubic, Moderate. negative: Normal, RUQ, RLQ, LUQ, LLQ , Epigastric, Periumbilical, Mild, Severe, Rebound, Guarding, Rigidity, Other Skin: Normal. negative: Decreased Turgur, Rash, Papular, Macular, Maculopapular , Vesicular, Pustular, Petechial, Red, Tender, Hot, Diaphoresis, Wound, Bruising , Ecchymosis, Other Musculoskeletal: Normal. negative: Right, Left, Shoulder, Clavicle, Arm, Elbow , Forearm, Wrist, Hand, Hip, Thigh, Knee, Leg, Ankle, Foot, Back:Thoracic, Back: Lumbar, Back:Midline, Back:Paraspinous, Pelvis, Swelling, Tender, Deformity, Pulse Deficit, Motor Deficit, Sensory Deficit, Instability, Crepitance Psychiatric: Normal. negative: Anxiety, Depression, Agitation, Other Mood Description: Calm. negative: Angry, Apathetic, Depressed, Fearful, Flat, Happy, Hostile, Sad, Suspicious, Withdrawn, Anxious, Appropriate, Labile Affect: Normal. negative: Angry, Anxious, Depressed, Flat, Hysterical, Quiet, Violent Speech Pattern: Clear. negative: Appropriate, Unclear, Inappropriate, Delayed, Slurred, Excessive, Aphasic, Artificially Ventilated - Assessment/Plan (1) Dehydration Status: Acute Plan: IV FLUIDS, CONTINUE TO MONITOR LABS AND PATIENT (2) Hypotension Qualifiers: Hypotension type: other hypotension type Trimester: T Qualified Code(s): I95.89 - Other hypotension Status: Acute Plan: DOPAMIN DRIP, IV FLUIDS, CONTINUE TO MONITOR LABS AND PATIENT (3) Urinary tract infection Qualifiers: Urinary tract infection type: acute cystitis Hematuria presence: with hematuria Indwelling urinary catheter type: I Encounter type: E Qualified Code(s): N30.01 - Acute cystitis with hematuria Status: Acute Plan: CIPRO 400MG IV Q12H, CONTINUE TO MONITOR (4) Diarrhea Qualifiers: Diarrhea type: unspecified type Qualified Code(s): R19.7 - Diarrhea, unspecified Status: Acute Plan: CONTINUE TO MONITOR (5) Uremia Status: Acute Plan: IV FLUIDS, CONTINUE TO MONITOR LABS AND PATIENT
[2017-04-14 13:36] LABS: ABG BASE EXCESS -5.1 mmol/L (-2.0-2.0); ABG HCO3 19.9 mmol/L (22-26)
[2017-04-14 13:37] LABS: ABG ALLEN TEST POS
--- NOTE | 2017-04-14 14:16 | RAD ---
HISTORY: Shortness of breath. Hypotensive. Study: Chest one view Comparison: December 11, 2016. Findings: The trachea is midline. The cardiac silhouette is unremarkable. There are low lung volumes. The lupis ngs are clear without focal infiltrate or effusion. The bony thorax is unremarkable. IMPRESSION: 1. No acute cardiopulmonary disease. Reported By:
--- NOTE | 2017-04-14 21:35 | PCM.PROG ---
Progress Note - Progress Note for Day of Date: 04/14/17 - Subjective Subjective: IS ALERT AND ORIENTED, SITTING UP IN BED ON MORNING ROUNDS. FAMILY AT BEDSIDE. SHE IS WITH COMPLAINTS OF ABDOMINAL PAIN, LOWER BACK PAIN, AND WEAKNESS ON ROUNDS. LUNGS ARE CLEAR TO AUSCULTATION. BOWEL SOUNDS NORMAL IN ALL QUADRANTS. PATIENT DENIES DIARRHEA SINCE ADMISSION. VITALS THIS MORNING ARE 99.8-108-19-98%-109/63. CBC REPORTS WBC 17.6, HGB 12.4, HCT 38.9. CMP REPORTS SODIUM 143, POTASSIUM 3.4, CHLORIDE 110, CARBON DIOXIDE 18.3, BUN 31 , CREATININE 2.55, GLUCOSE 137, CALCIUM 7.1, AST 42, ALT 92, ALK PHOSPHATATSE 134, ALBUMIN 3.0. LACTIC ACID 1.8. CHEST XRAY NEGATIVE. URINE CULTURE IS PENDING. SHE IS NOTED TO BE ON DOPAMINE DRIP AT THIS TIME. WE WILL CONTINUE WITH CURRENT PLAN OF CARE. WE WILL CHECK BLOOD CULTURES, ABG, RECHECK AM LABS AND FOLLOW UP WITH PATIENT IN AM. - Past Medical Family Social History Past Med/Fam/Surg Hx: No changes since H&P Allergies: Allergies codeine Adverse Reaction (Verified 04/13/17 15:23) Penicillins Adverse Reaction (Verified 04/13/17 15:23) Sulfa (Sulfonamide Antibiotics) [SULFA] Adverse Reaction (Verified 04/13/17 15: 23) - Review of Systems ROS: No change since H&P - Vital Signs and I&O's Vital Signs: Temperature 99.3 F Pulse Rate [Apical] 100 Pulse Rate [Left Radial] 93 Respiratory Rate 16 Blood Pressure [Left Arm] 133/74 O2 Sat by Pulse Oximetry 98 Intake and Output: Intake & Output 04/12/17 04/13/17 04/14/17 04/15/17 11:59 11:59 11:59 11:59 Intake Total 8572 3514 Output Total 1300 3300 Balance 7269 214 - Physical Exam Oriented: Normal. negative: Time, Person, Place, Not Oriented, Unable to test, Other Eyes: Normal. negative: Blurred Vision, Diplopia, Discharge, Pain, Redness, Photophobia, Other Ear: Normal. negative: Right, Left, Swelling, Ecchymosis, Hemotypanum, Abrasion , Laceration Nose: Normal. negative: Injected, Discharge, Blood, Other Throat: Normal. negative: Tonsillar Hypertrophy, Red, Exudate, Dry, Other Respiratory: Normal Cardiovascular: Normal : Dysuria. negative: Normal, Hematuria, Frequency, Discharge, Testicular Pain , Bleeding, , Other Auscultation: Bowel Sounds: Increased. negative: Normal, Bruit, Absent, Decreased, High Pitched, Other Tenderness: Diffuse, Suprapubic, Moderate. negative: Normal, RUQ, RLQ, LUQ, LLQ , Epigastric, Periumbilical, Mild, Severe, Rebound, Guarding, Rigidity, Other Skin: Normal. negative: Decreased Turgur, Rash, Papular, Macular, Maculopapular , Vesicular, Pustular, Petechial, Red, Tender, Hot, Diaphoresis, Wound, Bruising , Ecchymosis, Other Musculoskeletal: Normal. negative: Right, Left, Shoulder, Clavicle, Arm, Elbow , Forearm, Wrist, Hand, Hip, Thigh, Knee, Leg, Ankle, Foot, Back:Thoracic, Back: Lumbar, Back:Midline, Back:Paraspinous, Pelvis, Swelling, Tender, Deformity, Pulse Deficit, Motor Deficit, Sensory Deficit, Instability, Crepitance Psychiatric: Normal. negative: Anxiety, Depression, Agitation, Other Mood Description: Calm. negative: Angry, Apathetic, Depressed, Fearful, Flat, Happy, Hostile, Sad, Suspicious, Withdrawn, Anxious, Appropriate, Labile Affect: Normal. negative: Angry, Anxious, Depressed, Flat, Hysterical, Quiet, Violent Speech Pattern: Clear, Appropriate - Laboratory and Diagnostics Result Diagrams: 04/14/17 04:30 04/14/17 04:30 Labs: 04/13/17 20:15 Urine,Catheterized Urine Culture - Preliminary Laboratory WBC 17.6 X10^3/uL (3.6-10.0) H 04/14/17 04:30 RBC 4.76 X10^6/uL (3.5-5.4) 04/14/17 04:30 Hgb 12.4 g/dL (12.0-16.0) 04/14/17 04:30 Hct 38.9 % (36.0-47.0) 04/14/17 04:30 MCV 81.7 fL (80.0-100.0) 04/14/17 04:30 MCH 26.1 pg (27.0-34.0) L 04/14/17 04:30 MCHC 32.0 g/dL (33.0-35.0) L 04/14/17 04:30 RDW 15.1 % (11.6-16.5) 04/14/17 04:30 Plt Count 303 X10^3/uL (150.0-450.0) 04/14/17 04:30 Plt Count Comment Adequate (ADEQUATE) 04/13/17 16:08 MPV 9.2 fL (7.4-11.0) 04/14/17 04:30 Neut % 73.2 % (42.0-75.0) 04/14/17 04:30 Lymph % 16.1 % (21.0-51.0) L 04/14/17 04:30 [place] % 9.1 % (0.0-13.0) 04/14/17 04:30 Eos % 1.4 % (0.9-2.9) 04/14/17 04:30 Baso % 0.2 % (0.2-1.0) 04/14/17 04:30 Neut # 12.9 x10^3/uL (2.2-4.8) H 04/14/17 04:30 Lymph # 2.8 X10^3/uL (1.3-2.9) 04/14/17 04:30 [place] # 1.6 x10^3/uL (0.3-0.8) H 04/14/17 04:30 Eos # 0.2 x10^3/uL (0.0-0.2) 04/14/17 04:30 Baso # 0.0 X10^3/uL (0.0-0.1) 04/14/17 04:30 Absolute Nucleated RBC 0.0 /100WBC 04/14/17 04:30 Plt Morphology Comment Normal (NORMAL) 04/13/17 16:08 RBC Morphology Abnormal (NORMAL) A 04/13/17 16:08 Hypochromasia Slight A 04/13/17 16:08 Sample Site Rt rad 04/14/17 12:55 ABG pH 7.350 (7.35-7.45) 04/14/17 12:55 ABG pCO2 36.0 mmHg (35.0-45.0) 04/14/17 12:55 ABG pO2 98.0 mmHg (80.0-100.0) 04/14/17 12:55 ABG HCO3 19.9 mmol/L (22-26) L 04/14/17 12:55 ABG O2 Saturation 97.0 % (90-100) 04/14/17 12:55 ABG Base Excess -5.1 mmol/L (-2.0-2.0) L 04/14/17 12:55 Ar Test Pos 04/14/17 12:55 A-a Gradient 7.0 mmHg 04/14/17 12:55 FiO2 21.000 04/14/17 12:55 Blood Gas Comments [place] 04/14/17 12:55 Sodium 143 mmol/L (136-145) 04/14/17 04:30 Corrected Sodium 144 mmol/L (136-145) 04/14/17 04:30 Potassium 3.4 mmol/L (3.5-5.1) L 04/14/17 04:30 Chloride 110 mmol/L (98-107) H 04/14/17 04:30 Carbon Dioxide 18.3 mmol/L (21-32) L 04/14/17 04:30 BUN 31 mg/dL (7-18) H 04/14/17 04:30 Creatinine 2.55 mg/dL (0.55-1.02) H 04/14/17 04:30 Est GFR (MDRD) Af Amer 27 (>60) L 04/14/17 04:30 Est GFR (MDRD) Non-Af 22 (>60) L 04/14/17 04:30 Glucose 137 mg/dL (65-99) H 04/14/17 04:30 Lactic Acid 1.8 mmol/L (0.4-2.0) 04/14/17 10:33 Calcium 7.1 mg/dL (8.5-10.1) L 04/14/17 04:30 Corrected Calcium 7.9 mg/dL (8.5-10.1) L 04/14/17 04:30 Magnesium 1.7 mg/dL (1.7-2.9) 04/14/17 04:30 Total Bilirubin 0.40 mg/dL (0.2-1.0) 04/14/17 04:30 AST 42 Units/L (15-37) H 04/14/17 04:30 ALT 92 Units/L (12-78) H 04/14/17 04:30 Alkaline Phosphatase 134 Units/L (46-116) H 04/14/17 04:30 Total Protein 6.9 g/dL (6.4-8.2) 04/14/17 04:30 Albumin 3.0 g/dL (3.4-5.0) L 04/14/17 04:30 Globulin 3.9 g/dL (2.5-4.5) 04/14/17 04:30 Albumin/Globulin Ratio 0.8 Ratio (1.1-2.1) L 04/14/17 04:30 Specimen Type Catherized urine 04/13/17 20:15 Urine Color Yellow (YELLOW) 04/13/17 20:15 Urine Appearance Cloudy (CLEAR) 04/13/17 20:15 Urine pH 5.0 (5.0 - 8.0) 04/13/17 20:15 Ur Specific [place] 1.025 (1.000-1.030) 04/13/17 20:15 Urine Protein 3+ (NEGATIVE) 04/13/17 20:15 Urine Glucose (UA) Negative (NEGATIVE) 04/13/17 20:15 Urine Ketones 1+ (NEGATIVE) 04/13/17 20:15 Urine Occult Blood 3+ (NEGATIVE) 04/13/17 20:15 Urine Nitrite Negative (NEGATIVE) 04/13/17 20:15 Urine Bilirubin 1+ (NEGATIVE) 04/13/17 20:15 Urine Urobilinogen Normal (NORMAL) 04/13/17 20:15 Ur Leukocyte Esterase 1+ (NEGATIVE) 04/13/17 20:15 Urine RBC 2-6 /HPF (NEGATIVE) 04/13/17 20:15 Urine WBC 10-15 /HPF (NEGATIVE) 04/13/17 20:15 Ur Squamous Epith Cells Few /HPF (NEGATIVE) 04/13/17 20:15 Amorphous Sediment 1+ /HPF (NEGATIVE) 04/13/17 20:15 Urine Bacteria 1+ /HPF (NEGATIVE) 04/13/17 20:15 Urine Mucus Moderate /HPF (NEGATIVE) 04/13/17 20:15 Ur Culture Indicated? Yes/culture set up 04/13/17 20:15 - Plan (1) Dehydration Status: Acute Plan: IV FLUIDS, CONTINUE TO MONITOR LABS AND PATIENT (2) Hypotension Status: Acute Qualifiers: Hypotension type: other hypotension type Trimester: T Qualified Code(s): I95.89 - Other hypotension Plan: DOPAMIN DRIP, IV FLUIDS, CONTINUE TO MONITOR LABS AND PATIENT (3) Urinary tract infection Status: Acute Qualifiers: Urinary tract infection type: acute cystitis Hematuria presence: with hematuria Indwelling urinary catheter type: I Encounter type: E Qualified Code(s): N30.01 - Acute cystitis with hematuria Plan: CIPRO 400MG IV Q12H, CONTINUE TO MONITOR (4) Diarrhea Status: Acute Qualifiers: Diarrhea type: unspecified type Qualified Code(s): R19.7 - Diarrhea, unspecified Plan: CONTINUE TO MONITOR (5) Uremia Status: Acute Plan: IV FLUIDS, CONTINUE TO MONITOR LABS AND PATIENT (6) Shortness of breath Status: Acute Plan: SUPPLEMENTAL OXYGEN, ABG, CONTINUE TO MONITOR
[2017-04-15] MEDS: NS 1000 ML 1,000 ML IV SCH ×5 (05:10→22:25)
[2017-04-15] MEDS: REGLAN INJ 10 MG VIAL IVP SCH ×4 (05:44→20:52)
[2017-04-15 05:53] LABS: BASOPHILS % (AUTO) 0.5 % (0.2-1.0); EOSINOPHILS # (AUTO) 0.1 x10^3/uL (0.0-0.2); EOSINOPHILS % (AUTO) 1.7 % (0.9-2.9); HEMATOCRIT 34.3 % (36.0-47.0); HEMOGLOBIN 11.3 g/dL (12.0-16.0); LYMPHOCYTES # (AUTO) 2.4 X10^3/uL (1.3-2.9); LYMPHOCYTES % (AUTO) 29.5 % (21.0-51.0); MEAN CORPUSCULAR HEMOGLOBIN 26.3 pg (27.0-34.0); MEAN CORPUSCULAR HGB CONC 32.8 g/dL (33.0-35.0); MEAN CORPUSCULAR VOLUME 80.2 fL (80.0-100.0); MONOCYTES # (AUTO) 0.8 x10^3/uL (0.3-0.8); MONOCYTES % (AUTO) 9.1 % (0.0-13.0); NEUTROPHILS # (AUTO) 4.9 x10^3/uL (2.2-4.8); NEUTROPHILS % (AUTO) 59.2 % (42.0-75.0); PLATELET COUNT 242 X10^3/uL (150.0-450.0); RED BLOOD COUNT 4.27 X10^6/uL (3.5-5.4); WHITE BLOOD COUNT 8.3 X10^3/uL (3.6-10.0)
[2017-04-15 06:03] LABS: ALANINE AMINOTRANSFERASE 66 Units/L (12-78); ALBUMIN 2.3 g/dL (3.4-5.0); ALKALINE PHOSPHATASE 105 Units/L (46-116); ASPARTATE AMINO TRANSFERASE 29 Units/L (15-37); BLOOD UREA NITROGEN 12 mg/dL (7-18); CALCIUM 7.8 mg/dL (8.5-10.1); CARBON DIOXIDE 20.9 mmol/L (21-32); CHLORIDE 112 mmol/L (98-107); COR CA(FOR HYPOALB) 9.2 mg/dL (8.5-10.1); CREATININE 1.11 mg/dL (0.55-1.02); SODIUM 143 mmol/L (136-145); TOTAL PROTEIN 5.8 g/dL (6.4-8.2); eGFR BLACK RACES > 60 (>60); eGFR NON BLACK RACES 58 (>60)
[2017-04-15 06:12] LABS: COR NA(FOR HYPERGLY) 143 mmol/L (136-145); GLUCOSE 112 mg/dL (65-99)
[2017-04-15] MEDS: CIPRO IV 400 MG PREMIX* 400 MG/200 ML IV.SOLN. IV SCH ×2 (08:15→20:51)
[2017-04-15 10:14] LABS: CRYPTOSPORIDIUM PARVUM ANTIGEN NEGATIVE (NEGATIVE); GIARDIA LAMBLIA ANTIGEN NEGATIVE (NEGATIVE)
[2017-04-15] MEDS: ALBUMIN HUMAN 25%- 100ML 100 ML IV SCH (13:15)
--- NOTE | 2017-04-15 14:30 | PCM.PROG ---
Progress Note - Progress Note for Day of Date: 04/15/17 - Subjective Subjective: IS ALERT AND ORIENTED, SITTING UP IN BED ON MORNING ROUNDS. FAMILY AT BEDSIDE. SHE REPORTS FEELING MUCH BETTER TODAY. SHE IS WITHOUT COMPLAINTS. LUNGS ARE CLEAR TO AUSCULTATION. BOWEL SOUNDS NORMAL IN ALL QUADRANTS. PATIENT REPORTS HAVING A BOWEL MOVEMENT THIS MORNING. VITALS THIS MORNING ARE 97.5-281-63-100%-151/66. CBC REPORTS WBC 8.3, HGB 11.3, HCT 34.3. CMP REPORTS SODIUM 143, POTASSIUM 3.5, CHLORIDE 112, CARBON DIOXIDE 20.9, BUN 12 , CREATININE 1.11, GLUCOSE 112, CALCIUM 7.8, AST 29, ALT 66, ALK PHOSPHATATSE 105, ALBUMIN 2.3. CHEST XRAY NEGATIVE. URINE CULTURE IS PENDING. STOOL STUDIES REPORT POSITIVE FOR C.DIFFICILE. DOPAMINE DRIP HAS BEEN DISCONTINUED. WE WILL START FLAGYL 500MG PO TID AND ALBUMIN 25% DAILY. WE WILL CONTINUE WITH CURRENT PLAN OF CARE, DISCONTINUE MURRAY CATHETER, AND RECHECK AM LABS. WE WILL FOLLOW UP WITH PATIENT IN AM. - Past Medical Family Social History Past Med/Fam/Surg Hx: No changes since H&P Allergies: Allergies codeine Adverse Reaction (Verified 04/13/17 15:23) Penicillins Adverse Reaction (Verified 04/13/17 15:23) Sulfa (Sulfonamide Antibiotics) [SULFA] Adverse Reaction (Verified 04/13/17 15: 23) - Review of Systems ROS: No change since H&P - Vital Signs and I&O's Vital Signs: Temperature 97.9 F Pulse Rate [Apical] 81 Pulse Rate [Left Radial] 93 Respiratory Rate 20 Blood Pressure [Left Arm] 117/87 O2 Sat by Pulse Oximetry 100 Intake and Output: Intake & Output 04/13/17 04/14/17 04/15/17 04/16/17 11:59 11:59 11:59 11:59 Intake Total 8529 2333 Output Total 1898 5700 Balance 7269 1103 - Physical Exam Oriented: Normal. negative: Time, Person, Place, Not Oriented, Unable to test, Other Eyes: Normal. negative: Blurred Vision, Diplopia, Discharge, Pain, Redness, Photophobia, Other Ear: Normal. negative: Right, Left, Swelling, Ecchymosis, Hemotypanum, Abrasion , Laceration Nose: Normal. negative: Injected, Discharge, Blood, Other Throat: Normal. negative: Tonsillar Hypertrophy, Red, Exudate, Dry, Other Respiratory: Normal Cardiovascular: Normal : Dysuria. negative: Normal, Hematuria, Frequency, Discharge, Testicular Pain , Bleeding, , Other Auscultation: Bowel Sounds: Increased. negative: Normal, Bruit, Absent, Decreased, High Pitched, Other Tenderness: Diffuse, Suprapubic, Moderate. negative: Normal, RUQ, RLQ, LUQ, LLQ , Epigastric, Periumbilical, Mild, Severe, Rebound, Guarding, Rigidity, Other Skin: Normal. negative: Decreased Turgur, Rash, Papular, Macular, Maculopapular , Vesicular, Pustular, Petechial, Red, Tender, Hot, Diaphoresis, Wound, Bruising , Ecchymosis, Other Musculoskeletal: Normal. negative: Right, Left, Shoulder, Clavicle, Arm, Elbow , Forearm, Wrist, Hand, Hip, Thigh, Knee, Leg, Ankle, Foot, Back:Thoracic, Back: Lumbar, Back:Midline, Back:Paraspinous, Pelvis, Swelling, Tender, Deformity, Pulse Deficit, Motor Deficit, Sensory Deficit, Instability, Crepitance Psychiatric: Normal. negative: Anxiety, Depression, Agitation, Other Mood Description: Calm. negative: Angry, Apathetic, Depressed, Fearful, Flat, Happy, Hostile, Sad, Suspicious, Withdrawn, Anxious, Appropriate, Labile Affect: Normal. negative: Angry, Anxious, Depressed, Flat, Hysterical, Quiet, Violent Speech Pattern: Clear, Appropriate - Laboratory and Diagnostics Result Diagrams: 04/15/17 04:50 04/15/17 04:50 Labs: 04/13/17 20:15 Urine,Catheterized Urine Culture - Final 04/15/17 05:50 Stool - Final Laboratory WBC 8.3 X10^3/uL (3.6-10.0) 04/15/17 04:50 RBC 4.27 X10^6/uL (3.5-5.4) 04/15/17 04:50 Hgb 11.3 g/dL (12.0-16.0) L 04/15/17 04:50 Hct 34.3 % (36.0-47.0) L 04/15/17 04:50 MCV 80.2 fL (80.0-100.0) 04/15/17 04:50 MCH 26.3 pg (27.0-34.0) L 04/15/17 04:50 MCHC 32.8 g/dL (33.0-35.0) L 04/15/17 04:50 RDW 15.0 % (11.6-16.5) 04/15/17 04:50 Plt Count 242 X10^3/uL (150.0-450.0) 04/15/17 04:50 Plt Count Comment Adequate (ADEQUATE) 04/13/17 16:08 MPV 9.0 fL (7.4-11.0) 04/15/17 04:50 Neut % 59.2 % (42.0-75.0) 04/15/17 04:50 Lymph % 29.5 % (21.0-51.0) 04/15/17 04:50 [place] % 9.1 % (0.0-13.0) 04/15/17 04:50 Eos % 1.7 % (0.9-2.9) 04/15/17 04:50 Baso % 0.5 % (0.2-1.0) 04/15/17 04:50 Neut # 4.9 x10^3/uL (2.2-4.8) H 04/15/17 04:50 Lymph # 2.4 X10^3/uL (1.3-2.9) 04/15/17 04:50 [place] # 0.8 x10^3/uL (0.3-0.8) 04/15/17 04:50 Eos # 0.1 x10^3/uL (0.0-0.2) 04/15/17 04:50 Baso # 0.0 X10^3/uL (0.0-0.1) 04/15/17 04:50 Absolute Nucleated RBC 0.0 /100WBC 04/15/17 04:50 Plt Morphology Comment Normal (NORMAL) 04/13/17 16:08 RBC Morphology Abnormal (NORMAL) A 04/13/17 16:08 Hypochromasia Slight A 04/13/17 16:08 Sample Site Rt rad 04/14/17 12:55 ABG pH 7.350 (7.35-7.45) 04/14/17 12:55 ABG pCO2 36.0 mmHg (35.0-45.0) 04/14/17 12:55 ABG pO2 98.0 mmHg (80.0-100.0) 04/14/17 12:55 ABG HCO3 19.9 mmol/L (22-26) L 04/14/17 12:55 ABG O2 Saturation 97.0 % (90-100) 04/14/17 12:55 ABG Base Excess -5.1 mmol/L (-2.0-2.0) L 04/14/17 12:55 Ar Test Pos 04/14/17 12:55 A-a Gradient 7.0 mmHg 04/14/17 12:55 FiO2 21.000 04/14/17 12:55 [facility] 04/14/17 12:55 Sodium 143 mmol/L (136-145) 04/15/17 04:50 Corrected Sodium 143 mmol/L (136-145) 04/15/17 04:50 Potassium 3.5 mmol/L (3.5-5.1) 04/15/17 04:50 Chloride 112 mmol/L (98-107) H 04/15/17 04:50 Carbon Dioxide 20.9 mmol/L (21-32) L 04/15/17 04:50 BUN 12 mg/dL (7-18) 04/15/17 04:50 Creatinine 1.11 mg/dL (0.55-1.02) H 04/15/17 04:50 Est GFR (MDRD) Af Amer > 60 (>60) 04/15/17 04:50 Est GFR (MDRD) Non-Af 58 (>60) L 04/15/17 04:50 Glucose 112 mg/dL (65-99) H 04/15/17 04:50 Lactic Acid 1.8 mmol/L (0.4-2.0) 04/14/17 10:33 Calcium 7.8 mg/dL (8.5-10.1) L 04/15/17 04:50 Corrected Calcium 9.2 mg/dL (8.5-10.1) 04/15/17 04:50 Magnesium 1.7 mg/dL (1.7-2.9) 04/14/17 04:30 Total Bilirubin 0.80 mg/dL (0.2-1.0) 04/15/17 04:50 AST 29 Units/L (15-37) 04/15/17 04:50 ALT 66 Units/L (12-78) 04/15/17 04:50 Alkaline Phosphatase 105 Units/L (46-116) 04/15/17 04:50 Total Protein 5.8 g/dL (6.4-8.2) L 04/15/17 04:50 Albumin 2.3 g/dL (3.4-5.0) L 04/15/17 04:50 Globulin 3.5 g/dL (2.5-4.5) 04/15/17 04:50 Albumin/Globulin Ratio 0.7 Ratio (1.1-2.1) L 04/15/17 04:50 Specimen Type Catherized urine 04/13/17 20:15 Urine Color Yellow (YELLOW) 04/13/17 20:15 Urine Appearance Cloudy (CLEAR) 04/13/17 20:15 Urine pH 5.0 (5.0 - 8.0) 04/13/17 20:15 Ur Specific [place] 1.025 (1.000-1.030) 04/13/17 20:15 Urine Protein 3+ (NEGATIVE) 04/13/17 20:15 Urine Glucose (UA) Negative (NEGATIVE) 04/13/17 20:15 Urine Ketones 1+ (NEGATIVE) 04/13/17 20:15 Urine Occult Blood 3+ (NEGATIVE) 04/13/17 20:15 Urine Nitrite Negative (NEGATIVE) 04/13/17 20:15 Urine Bilirubin 1+ (NEGATIVE) 04/13/17 20:15 Urine Urobilinogen Normal (NORMAL) 04/13/17 20:15 Ur Leukocyte Esterase 1+ (NEGATIVE) 04/13/17 20:15 Urine RBC 2-6 /HPF (NEGATIVE) 04/13/17 20:15 Urine WBC 10-15 /HPF (NEGATIVE) 04/13/17 20:15 Ur Squamous Epith Cells Few /HPF (NEGATIVE) 04/13/17 20:15 Amorphous Sediment 1+ /HPF (NEGATIVE) 04/13/17 20:15 Urine Bacteria 1+ /HPF (NEGATIVE) 04/13/17 20:15 Urine Mucus Moderate /HPF (NEGATIVE) 04/13/17 20:15 Ur Culture Indicated? Yes/culture set up 04/13/17 20:15 Stool Description 50g unformed brown 04/15/17 05:50 Stl Occult Blood (IFOB) Negative (NEGATIVE) 04/15/17 05:50 Stool for White Cells No wbc's seen (None) 04/15/17 05:50 Stl C. diff Tox B Gene Positive (NEGATIVE) A 04/15/17 05:50 Stl C. diff [id number] Negative (NEGATIVE) 04/15/17 05:50 Cryptosporid parvum Ag Negative (NEGATIVE) 04/15/17 05:50 E. histolytica Antigen Negative (NEGATIVE) 04/15/17 05:50 Giardia lamblia Ag Negative (NEGATIVE) 04/15/17 05:50 - Plan (1) Dehydration Status: Acute Plan: IV FLUIDS, CONTINUE TO MONITOR LABS AND PATIENT (2) Hypotension Status: Acute Qualifiers: Hypotension type: other hypotension type Trimester: T Qualified Code(s): I95.89 - Other hypotension Plan: IV FLUIDS, CONTINUE TO MONITOR LABS AND PATIENT (3) Urinary tract infection Status: Acute Qualifiers: Urinary tract infection type: acute cystitis Hematuria presence: with hematuria Indwelling urinary catheter type: I Encounter type: E Qualified Code(s): N30.01 - Acute cystitis with hematuria Plan: CIPRO 400MG IV Q12H, CONTINUE TO MONITOR (4) Diarrhea Status: Acute Qualifiers: Diarrhea type: unspecified type Qualified Code(s): R19.7 - Diarrhea, unspecified Plan: CONTINUE TO MONITOR (5) Uremia Status: Acute Plan: IV FLUIDS, CONTINUE TO MONITOR LABS AND PATIENT (6) Shortness of breath Status: Acute Plan: SUPPLEMENTAL OXYGEN, ABG, CONTINUE TO MONITOR (7) C. difficile diarrhea Status: Acute Plan: FLAGYL 500MG PO TID, CONTINUE TO MONITOR
[2017-04-15] MEDS: FLAGYL TAB 500 MG PO SCH ×2 (14:36→21:00)
[2017-04-15] MEDS ORDERED: ZOFRAN INJ 4 MG VIAL IVP PRN (22:03)
[2017-04-16] MEDS ORDERED: AMBIEN PO PRN (00:54)
[2017-04-16] MEDS: NS 1000 ML 1,000 ML IV SCH ×2 (00:59→05:42)
[2017-04-16] MEDS: FLAGYL TAB 500 MG PO SCH (05:45)
[2017-04-16] MEDS: REGLAN INJ 10 MG VIAL IVP SCH ×2 (05:45→11:44)
[2017-04-16 06:41] LABS: BASOPHILS % (AUTO) 0.4 % (0.2-1.0); EOSINOPHILS # (AUTO) 0.2 x10^3/uL (0.0-0.2); EOSINOPHILS % (AUTO) 2.1 % (0.9-2.9); HEMATOCRIT 32.4 % (36.0-47.0); HEMOGLOBIN 10.6 g/dL (12.0-16.0); LYMPHOCYTES % (AUTO) 26.6 % (21.0-51.0); MEAN CORPUSCULAR HEMOGLOBIN 26.2 pg (27.0-34.0); MEAN CORPUSCULAR HGB CONC 32.7 g/dL (33.0-35.0); MEAN CORPUSCULAR VOLUME 80.2 fL (80.0-100.0); MEAN PLATELET VOLUME 8.7 fL (7.4-11.0); MONOCYTES # (AUTO) 0.6 x10^3/uL (0.3-0.8); MONOCYTES % (AUTO) 7.5 % (0.0-13.0); NEUTROPHILS # (AUTO) 4.8 x10^3/uL (2.2-4.8); NEUTROPHILS % (AUTO) 63.4 % (42.0-75.0); PLATELET COUNT 231 X10^3/uL (150.0-450.0); RED BLOOD COUNT 4.04 X10^6/uL (3.5-5.4); RED CELL DISTRIBUTION WIDTH 14.8 % (11.6-16.5); WHITE BLOOD COUNT 7.6 X10^3/uL (3.6-10.0)
[2017-04-16 07:07] LABS: ALANINE AMINOTRANSFERASE 55 Units/L (12-78); ALBUMIN 2.8 g/dL (3.4-5.0); ALKALINE PHOSPHATASE 90 Units/L (46-116); ASPARTATE AMINO TRANSFERASE 24 Units/L (15-37); BLOOD UREA NITROGEN 8 mg/dL (7-18); CALCIUM 7.8 mg/dL (8.5-10.1); CHLORIDE 111 mmol/L (98-107); COR CA(FOR HYPOALB) 8.8 mg/dL (8.5-10.1); CREATININE 1.09 mg/dL (0.55-1.02); GLUCOSE 107 mg/dL (65-99); SODIUM 145 mmol/L (136-145); TOTAL PROTEIN 6.2 g/dL (6.4-8.2); eGFR BLACK RACES > 60 (>60); eGFR NON BLACK RACES 60 (>60)
[2017-04-16] MEDS: ALBUMIN HUMAN 25%- 100ML 100 ML IV SCH (10:07)
[2017-04-16] MEDS: CIPRO IV 400 MG PREMIX* 400 MG/200 ML IV.SOLN. IV SCH (10:07)
[2017-04-16] MEDS ORDERED: BUTT CREAM (COMPOUND) ONE (11:23)
[2017-04-16 12:35] VITALS: BP 158/88
== END 2017-04-16 13:24 | disposition home or self-care (01) | DRG 641 ==
LOC: ER 15:53 → ICU 19:02
PROVIDERS: ADMIT Internal Medicine; ATTEND Internal Medicine
DX: E86.0 Dehydration (principal); I95.89 Other hypotension; R55 Syncope and collapse; R19.7 Diarrhea, unspecified; N30.01 Acute cystitis with hematuria; A04.7 Enterocolitis due to Clostridium difficile; N19 Unspecified kidney failure; R53.1 Weakness; M13.89 Other specified arthritis, multiple sites; K21.9 Gastro-esophageal reflux disease without esophagitis; I10 Essential (primary) hypertension; R06.02 Shortness of breath; N20.0 Calculus of kidney
CPT/HCPCS: 36415; 36600; 51701; 70450; 71010; 74022; 74176; 80053; 81001; 82270; 82803; 83605; 83735; 85025; 87040; 87045; 87086; 87205; 87328; 87329; 87336; 87427; 87493; 87899; 93041; 96365; 96367; 96374; 99284; 99285; A4222; P9047; J0744; J1265; J2765

== ENCOUNTER → 2017-10-10 | Outpatient (CLI) | payer BC ==
--- NOTE | 2017-10-10 11:14 | CT ---
HISTORY: Headache and dizziness, syncope Study: CT head without contrast Comparison: 04/13/2017 Technique: Multiple axial images were obtained from the skullbase to the vertex without the administration of IV contrast. Reformatted coronal and sagittal planes were produced as well. Findings: Imaging of the brain demonstrates no intracranial hemorrhage, mass effect, or midline shift. No extra -axial fluid collection is identified. There is no CT evidence to suggest acute or early subacute inf arct. The ventricles are symmetric and nondilated. The basilar cisterns are patent. The bony structur es are intact. IMPRESSION: 1. Unremarkable CT of the head without contrast Reported By:
== END ==
LOC: RAD 10:17
PROVIDERS: ATTEND Internal Medicine
DX: R51 Headache (principal)
CPT/HCPCS: 70450

== ENCOUNTER → 2017-10-25 | Outpatient (CLI) | payer OTHER ==
--- NOTE | 2017-10-25 09:45 | RAD ---
.Examination: Lumbar spine, AP and lateral views History: Low back pain, hypertension and diabetes Findings: There is severe degenerative disc narrowing, endplate sclerosis and marginal osteophyte for mation at L5-S1. Alignment is anatomic. No evidence for fracture, pedicle destruction or sacroiliac a bnormality. Impression: Degenerative disc disease L5-S1. No acute findings Reported By:
--- NOTE | 2017-10-25 09:47 | RAD ---
Examination: Cervical spine, four views History: Neck pain Findings: Normal alignment of C1-C6. C7 and T1 are obscured on lateral view. Disc spaces as visualize d are normal. There is no evidence for fracture, osteolytic disease or prevertebral soft tissue abnor mality. The C1-2 complex is normal. Impression: No acute or significant findings. However, there is incomplete lateral evaluation of the cervicothoracic junction. Reported By:
== END ==
LOC: RAD 08:47
PROVIDERS: ATTEND Internal Medicine
DX: Z02.71 Encounter for disability determination (principal)
CPT/HCPCS: 72040; 72100

== ENCOUNTER → 2018-01-11 | Outpatient (CLI) | payer BC ==
--- NOTE | 2018-01-11 14:35 | MRI ---
Indication: Neck pain Exam: MRI cervical spine without contrast. Comparison: 11/11/2016 Technique: Routine multiplanar multisequence imaging was or cervical spine without contrast. Findings: There is mild reversal of the normal lordotic curvature. There is [id number] disc spa ce narrowing throughout the mid to lower cervical region which is not significantly changed. No fract ure or subluxation is seen. The cervical cord is normal size and signal intensity throughout . The elvia ne marrow signal is normal throughout. The craniocervical junction is unremarkable. There is a small disc osteophyte complex at C3-4 causing minimal dural sac effacement anteriorly which is unchanged. T he neural foramina clear. The prevertebral soft tissues are normal. Impression: Reversal of the normal lordotic curvature which is probably due to muscle spasm. [id number]-[id number] degenerative disc changes throughout the mid to lower cervical region which is uncha nged with no acute abnormality seen. Small disc osteophyte complex at C3-4 which is unchanged. Reported By:
== END | disposition home or self-care (01) | DRG 552 ==
LOC: RAD 12:56
PROVIDERS: ATTEND Anesthesiology Pain Medicine
DX: M53.3 Sacrococcygeal disorders, not elsewhere classified (principal); M53.88 Other specified dorsopathies, sacral and sacrococcygeal region; M48.8X8 Other specified spondylopathies, sacral and sacrococcygeal region; M47.22 Other spondylosis with radiculopathy, cervical region; M47.23 Other spondylosis with radiculopathy, cervicothoracic region; M54.2 Cervicalgia; M48.02 Spinal stenosis, cervical region; M48.061 Spinal stenosis, lumbar region without neurogenic claudication
CPT/HCPCS: 72141